=== PATIENT | female | born 1990 | race Caucasian/White ===

== ENCOUNTER 2018-06-15 14:40 | Emergency (ER) | payer SELFPAY ==
--- NOTE | 2018-06-15 15:06 | PDOC ---
History of Present Illness - General Chief Complaint: Respiratory Stated Complaint: COUGH X 5 DAYS Time Seen by Provider: 06/15/18 14:58 - History of Present Illness Initial Comments: Jared Cedillo is an otherwise healthy 27yo woman who presents with 5 days of cough and headache; she also reports tactile fever over the weekend. She denies any known sick contacts, h/o asthma, or smoking. She has not had any chest pain , difficulty breathing, nausea/vomiting, or other associated symptoms. Ms Cedillo moved from [facility] about 4 months ago and has not yet established medical care here. She believes that she had all of her childhood vaccinations but did not get a flu shot this year. Past History - Past Medical History Allergies/Adverse Reactions: Allergies Allergy/AdvReac Type Severity Reaction Status Date / Time No Known Allergies Allergy Verified 06/15/18 14:57 Review of Systems - Review of Systems Comments:: General: +tactile fever, no chills, no weight or appetite change, no malaise HEENT: No changes in vision, no changes in hearing, no congestion, no sore throat CV: No chest pain, no palpitations, no LE edema Pulm: No SOB, +cough, no wheezing GI: No nausea or vomiting, no change in bowel habits, no melena : No frequency, no urgency, no dysuria Musc: No back pain, no joint swelling, no recent injury Skin: No rash, no lesions, no erythema Endo: No excessive thirst, no heat/cold intolerance Heme: No unusual bruising or bleeding, no swollen glands Neuro: No syncope, no numbness/tingling, no focal weakness Vasc: No claudication Psych: No recent change in mood, no SI or HI *Physical Exam - Physical Exam Comments: General: Comfortable, no acute distress HEENT: PERRL, EOMI, MMM, voice normal, normal neck ROM, no LAD Cards: RRR, no murmur appreciated Pulm: Comfortable on room air, clear to auscultation bilaterally Abd: Soft, nontender Ext: Atraumatic. Strength equal bilaterally Vasc: Extremities WWP. Skin: Normal color, no rashes or lesions Neuro: A&Ox3, CN grossly intact, normal speech, motor/sensory grossly intact and symmetric Psych: Mood appropriate to situation Medical Decision Making - Medical Decision Making 06/15/18 15:09 Jared Madsen is an otherwise healthy 27yo woman from [facility] (4mo ago) who presents with 5 days of cough, headache, congestion, and tactile fever. - Given length of symptoms, will not check flu - Most likely viral URI with cough, benign lung exam not suggestive of pneumonia or more serious illness - Discussed home care for URI and referred for PMD follow up with the internal medicine resident clinic. Ms Cedillo understands and agrees with the plan. Seen and discussed with Dr Godwin. Ekta Richardson PGY1 *DC/Admit/Observation/Transfer Diagnosis at time of Disposition: URI with cough and congestion - Discharge Dispostion Disposition: HOME Condition at time of disposition: Good Decision to Admit order: No - Referrals Referrals: [facility] [place] [Provider Group] - Patient Instructions Printed Discharge Instructions: DI for Common Cold Additional Instructions: Discharge Instructions: - You were seen in the emergency department for cough. Your symptoms are most likely caused by a respiratory virus and will resolve with time. Home Care: - You can buy medications to take at home over kristan counter - You can take an antihistamine with decongestant such as Laisha-D or Zyrtec- D. These are available at the pharmacy counter and may be purchased without a prescription. - You can take a cough medicine that contains an expectorant AND suppressant such as Robitussen DM - Drink plenty of fluids at home, even if you do not feel like eating. Follow Up: - Your symptoms should improve but could linger for up to 2 weeks. If you do not feel better by the end of the week, follow up with primary care. You have been referred to the internal medicine resident clinic. - Seek medical care if your symptoms worsen, you have difficulty breathing, or you are unable to stay hydrated. [facility]: - Ishte par n departamentin e urgjencs pr cristo. Simptomat tuaja m s gloria kelley virus i frymmarrjes dhe do t zgjidhen me kalimin e kohs. Kayla villagran shtpi: - Deepika ulloaini medikamente pr t su n shtpi pr cheyanne - Ju mund t merrni nj antihistamine me decongestant si Laisha-D ose Zyrtec- D. Kto rah n dispozicion n sportelin e farmacis dhe mund t blihen pa recet. - Deepika og merrhilda nj lorin kollash q prmban nj shtrydhs dhe shtyps si Robitussen DM - Pini tino lngje n shtpi, edhe nse nuk ndiheni t hahet. Ndiqe: - Simptomat tuaja duhet t prmirsohen, por brennan t zgjaten deri n 2 amaya. Nse nuk ndjeheni m herberth deri n fund t javs, ndiqni me kujdesin parsor. Deepika sterling referuar n kliniyoan rezidente t mjeksis s maria luisa. - Linda harveyeksor nse simptomat tuaja prkeqsohen, nely vshtirsi n ymmarrje ose nuk hallie villagran gjendje t qndroni t hidratuar. - Post Discharge Activity
[2018-06-15 15:07] VITALS: BP 108/81; PULSE 97; TEMP 98.6; BMI 24.3
== END 2018-06-15 15:35 | disposition home or self-care (01) ==
LOC: FER 14:40
DX: J06.9 Acute upper respiratory infection, unspecified (principal); R05 Cough; R09.89 Other specified symptoms and signs involving the circulatory and respiratory systems
CPT/HCPCS: 99281-25